=== PATIENT | male | born 1965 | race Caucasian/White ===

== ENCOUNTER 2017-05-12 12:27 | Day surgery (SDC) | payer BC, OTHER ==
[2017-05-11 13:05] VITALS: BMI 26.6
[2017-05-12] MEDS ORDERED: oxyCODONE HCL 5 MG TABLET PO PRN (12:50)
[2017-05-12] MEDS ORDERED: ONDANSETRON 4 MG/2 ML VIAL IVPUSH PRN (12:50)
[2017-05-12] MEDS ORDERED: LACTATED RINGERS SOLUTION 1,000 ML IV SCH (13:00)
[2017-05-12] MEDS ORDERED: DEXAMETHASONE SOD PHOSPHATE/PF 10 MG/ML SDV ONE (13:20)
[2017-05-12] MEDS ORDERED: MIDAZOLAM HCL 2 MG/2 ML SINGLE DOSE VIAL ONE ×2 (13:21)
--- NOTE | 2017-05-12 14:05 | HP ---
[facility] - Chief Complaint Chief Complaint: right shoulder pain - Past Medical History Allergies/Adverse Reactions: Allergies Allergy/AdvReac Type Severity Reaction Status Date / Time No Known Allergies Allergy Verified 05/12/17 12:48 - Current Medications Current Medications: Home Medications Medication Instructions Recorded No Home Medications 0 dose .ROUTE UTDICT 10/31/12 Hydrocodone/Acetaminophen [[place]orn 1 each PO Q6H PRN #40 tablet MDD 4 05/12/17 5-325 Tablet] Satellite Physical Exam - Physical Examination Vital Signs: Vital Signs Period Temp Pulse Resp BP Sys/Gill Pulse Ox Last 24 Hr 98.5 F 88 16 140/90 97 General Appearance: Well Nourished, Well Developed, Alert & Oriented x3 ENT: Clear Lung: Normal air movement Heart: Regular rate & rhythm Extremities: Other (right shoulder- + ttp, decr rom, + neer, + abernathy, + empty can, nvi MRI + rct) Neurological: Intact, Alert, Oriented Satellite Impression/Plan - Impression/Plan Impression: right shoulder rct Operative Procedure: right shoulder arthroscopy with RCR, SAD Date to be Performed: 05/12/17
[2017-05-12] MEDS ORDERED: ROCURONIUM BROMIDE 50 MG/5 ML VIAL ONE (14:26)
[2017-05-12] MEDS ORDERED: PROPOFOL 20 ML ONE ×2 (14:26)
[2017-05-12] MEDS ORDERED: ceFAZolin SODIUM 1 GM VIAL IVPB ONE (14:48)
--- NOTE | 2017-05-12 16:00 | OP ---
Operative Note - Note: Operative Date: 05/12/17 Pre-Operative Diagnosis: right shoulder impingement syndrome, RTC tear Operation: right shoulder arthroscopy, subacromial decompression, mini open RTC repair Implants: fiber wire x 5, Arthrex Swivel Lock anchors x 2 Surgeon: Jonathan Mccallum Perioperative Assistant: Fermin Layne Anesthesiologist/[employer] TRUCK DRIVER: Braulio Bess Anesthesia: General, Local Specimens Removed: shavings Estimated Blood Loss (mls): 30 Drains, Volume Out (mls): 0 Blood Volume Replaced (mls): 0 Fluid Volume Replaced (mls): 700 Operative Report Dictated: Yes
[2017-05-12 17:54] VITALS: TEMP 97.6
--- NOTE | 2017-05-12 18:04 | OP ---
DATE OF OPERATION: 05/12/2017 PREOPERATIVE DIAGNOSES: Right shoulder impingement syndrome and rotator cuff tear. POSTOPERATIVE DIAGNOSES: Right shoulder impingement syndrome and rotator cuff tear. PROCEDURE: Right shoulder arthroscopy, subacromial decompression, and mini-open rotator cuff repair. SURGEON: Jonathan Mccallum MD OCEAN FREIGHT MANAGER: LATOYA Finn ANESTHESIOLOGIST: Dr. Bess. ANESTHESIA: Right interscalene block, LMA anesthesia. DRAINS: None. COMPLICATIONS: None. BLOOD LOSS: 30 mL BLOOD GIVEN: None. FLUID REPLACEMENT: 700 mL INDICATION FOR PROCEDURE: This patient is a 52-year-old male with the preoperative diagnosis of right shoulder impingement syndrome and rotator cuff tear. After understanding the potential risks, complications, alternatives, benefits of surgery versus nonsurgical treatment, the patient elected to undergo this procedure. DESCRIPTION OF PROCEDURE: Patient was brought to the operating room, peripheral IV placed and IV sedation given. One gram of IV Ancef was given. A right interscalene block was performed. LMA anesthesia was induced. He was placed into the beach chair position with ample padding throughout. The right upper extremity was prepped and draped in sterile fashion. The bony landmarks were marked out with a marking pen. Posterior portal was established. A diagnostic glenohumeral arthroscopy was performed. The patient had a frayed biceps tendon. Therefore, an anterior portal was established, and this was debrided. The patient had an obvious full, complete rotator cuff tear. There was no significant glenohumeral osteoarthritis, and the labrum looked good. There was some synovitis which was cauterized. Next, our attention was turned to the subacromial space. The patient had a tremendous amount of inflammatory bursitis. A soft tissue bursectomy was performed with an ArthroCare wand and a shaver to remove the debris. After this extensive debridement, this revealed an extremely large subacromial bony spur. Photographs were taken. The spur was taken down with a 5.5-mm oval blake, then straightened up and reversed with a shaver. After the bony subacromial decompression was performed, this revealed a large full-thickness rotator cuff tear. It was quite anterior. The posterior 30% of the rotator cuff was still intact at its insertion. Next, using the Arantechion needle passer, I put in 5 FiberWire sutures for retraction. It came down quite nicely. The landing bed was debrided with the shaver. Next, we converted to a mini-open rotator cuff repair approach. The incision was lengthened. Bovie cautery was used for hemostasis. The Gelpi and then the Pantera retractors were placed into the wound. The additional open bursectomy was performed. I then used a rasp to take down a bony ridge and a rongeur to remove additional bursa around the rotator cuff insertion. I was able to directly visualize the rotator cuff, being able to be brought down quite nicely. I freshened up the landing bed with a rasp. Then, I put the posterior 3 FiberWire sutures/6 tails through a SwiveLock anchor and put it down to the humeral head. It came down quite nicely. I next did the same with the anterior 2 FiberWire sutures/4 tails. I pulled on the fixation and was unable to move it or come out at all. The area was irrigated and washed out. Closure was done with 0 Vicryl in the deep deltoid layer, 2-0 Vicryl in the deep dermal layer, a 3-0 V-Loc in the skin. The area was washed and dried, covered with SwiftSet skin glue. The anterior and posterior portals were closed with nylon. The area was then washed and dried and covered with an Aquacel dressing. The patient was put into a shoulder immobilizer. Total operative time was about 50 minutes. There were no complications during the case. The patient tolerated the procedure quite well and was brought to the ambulatory recovery room in stable condition. Santa [id number]
[2017-05-12 20:07] VITALS: BP 127/83; PULSE 89
[2017-05-12] MEDS ORDERED: oxyCODONE HCL 10 MG SUSTAINED ACTING TABLET PO SCH (22:00)
--- NOTE | 2017-05-14 18:05 | PATH ---
Surgical Pathology Report Patient Name: BRAYDON ARCHULETA [facility]. Rec. #: [id number] /Age/Gender: 1965 (Age: 52) / M Account: [id number] Location: [facility] Taken: 05/12/2017 Received: 05/13/2017 Reported: 05/14/2017 Physicians: Jonathan Mccallum M.D. Specimen(s) Received RIGHT SHOULDER SHAVINGS Clinical History Right shoulder impingement Final Diagnosis SHOULDER SHAVINGS, RIGHT, ARTHROSCOPY AND ROTATOR CUFF REPAIR: FRAGMENTS OF BENIGN CARTILAGE, BONE, DENSE FIBROCONNECTIVE TISSUE, ADIPOSE TISSUE, SYNOVIUM, AND SKELETAL MUSCLE. Electronically Signed Yi Ferreira M.D. Gross Description Received in formalin, labeled "right shoulder shavings," is a 3.8 x 3.5 x 0.4 cm. aggregate of holland-yellow soft tissue fragments. A business center representative portion is submitted in one cassette. /05/13/201705/13/2017
== END 2017-05-12 19:00 | disposition home or self-care (01) ==
LOC: JASU-SURG 12:27
PROVIDERS: ATTEND Orthopaedic Surgery
PROC: 0LM10ZZ Reattachment of Right Shoulder Tendon, Open Approach (ICD-10-PCS; 2017-05-12)
PROC: 0RBJ4ZZ Excision of Right Shoulder Joint, Percutaneous Endoscopic Approach (ICD-10-PCS; principal; 2017-05-12 14:30)
DX: M75.41 Impingement syndrome of right shoulder (principal); M75.101 Unspecified rotator cuff tear or rupture of right shoulder, not specified as traumatic
CPT/HCPCS: 88304-TC; 94760